=== PATIENT | male | born 1970 | race Caucasian/White ===

== ENCOUNTER 2019-03-24 17:33 | Emergency (ER) | payer BC ==
[2019-03-24 18:31] LABS: INR 0.95 (0.82-1.09)
[2019-03-24 18:38] LABS: Albumin 4.1 g/dL (3.2-5.2); Albumin/Globulin Ratio 1.4 (1-3); BUN/Creatinine Ratio 15.6 (8-20); Calcium 8.9 mg/dL (8.6-10.3); EGFR African American 88.1 (>60); EGFR Non-African American 72.8 (>60); Globulin 2.9 g/dL (2-4); Potassium 4.2 mmol/L (3.5-5.0); Total Bilirubin 0.4 mg/dL (0.2-1.0); Troponin I 0.01 ng/mL (<0.04)
[2019-03-24 18:46] LABS: ABS Eosinophils 0.1 10^3/ul (0-0.6); ABS Lymphocytes 2.8 10^3/ul (1.0-4.8); ABS Monocytes 0.6 10^3/ul (0-0.8); ABS Neutrophils 4.4 10^3/ul (1.5-7.7); Eosinophil % 1.8 %; Hematocrit 41 % (42-52); Hemoglobin 13.9 g/dL (14.0-18.0); Lymphocyte % 34.7 %; Mean Corpuscular HGB Conc 34 g/dL (31-36); Mean Corpuscular Hemoglobin 30 pg (27-31); Mean Corpuscular Volume 87 fL (80-94); Mean Platelet Volume 9.2 fL (7.4-10.4); Nucleated Red Blood Cells % 0.1; Platelet Count 144 10^3/uL (150-450); Red Cell Distribution Width 14 % (10-15)
--- NOTE | 2019-03-24 20:46 | ED ---
Skin Complaint - HPI Summary HPI Summary: This pt is a 48 y/o male [facility] [place] [place] skin lesions on his left upper back since 2 days ago. Pt reports he noticed these lesions yesterday and he believes he was bitten by a spider 2 days ago. He notes that this morning he woke up with pain. He describes his pain on his left shoulder blade, left arm, and left anterior chest around his nipple. He describes this pain as "sunburn." Denies fever, SOB, nausea, vomiting. - History of Current Complaint Chief Complaint: EDGeneral Time Seen by Provider: 03/24/19 20:39 Stated Complaint: CHEST PAIN PER PT Hx Obtained From: Patient Onset/Duration: Started Days Ago - 2, Still Present Skin Exposure Onset/Duration: Days Ago - 2 Timing: Lasting Days - 2 Current Severity: Mild Pain Intensity: 0 Pain Scale Used: 0-10 Numeric Skin Location: Chest - left, Arm - left, Other: - left upper back Character: Pain Aggravating Symptom(s): Nothing Alleviating Symptom(s): Nothing Associated Signs & Symptoms: Negative - Allergy/Home Medications Allergies/Adverse Reactions: Allergies Allergy/AdvReac Type Severity Reaction Status Date / Time No Known Allergies Allergy Verified 03/24/19 17:43 PMH/Surg Hx/FS Hx/Imm Hx Endocrine/Hematology History: Denies: Hx Sickle Cell Disease Cardiovascular History: Denies: Hx Hypertension, Other Cardiovascular Problems/Disorders Respiratory History: Denies: Other Respiratory Problems/Disorders GI History: Denies: Other GI Disorders History: Denies: Other Problems/Disorders Musculoskeletal History: Denies: Other Musculoskeletal History Sensory History: Denies: Hx Contacts or Glasses, Hx Hearing Aid Opthamlomology History: Denies: Hx Contacts or Glasses Neurological History: Denies: Other Neuro Impairments/Disorders - Cancer History Hx Chemotherapy: No - Surgical History Surgery Procedure, Year, and Place: 06/26/2013 LEFT LEG FASCIOTOMY, [facility] [place]. 1991 APPENDECTOMY, [facility] [place]. 2011 - HERN[facility] [place]. 06/30/2013 DEBRIDEMENT OF LEFT LEG WOUND WITH REMOVAL OF DRAINS, [facility] [place]. 07/05/2013 FAILED ATTEMPT TO SUTURE LEFT LEG WOUND , [facility] [place] Hx Anesthesia Reactions: No - Immunization History Date of Tetanus Vaccine: 06/19/13 Date of Influenza Vaccine: 2011 Infectious Disease History: No Infectious Disease History: Denies: Traveled Outside the [place] in Last 30 Days - Family History Known Family History: Negative: Blood Disorder - Social History Alcohol Use: Occasionally Substance Use Type: Reports: None Smoking Status (MU): Never Smoked Tobacco Review of Systems Negative: Fever Positive: Chest Pain - left sided Negative: Shortness Of Breath Negative: Vomiting, Nausea Musculoskeletal: Other - POSITIVE: left shoulder blade pain, left arm pain Skin: Other - POSITIVE: skin lesions on left upper back All Other Systems Reviewed And Are Negative: Yes Physical Exam - Summary Physical Exam Summary: Appearance: Well-appearing, Well-nourished, lying in bed comfortable Skin: Warm, dry, Scattered vesicular lesions in a dermatome pattern in the left upper back radiating around the chest just below the nipple. Eyes: sclera anicteric, no conjunctival pallor ENT: mucous membranes moist Neck: deferred Respiratory: No signs of respiratory distress Cardiovascular: Appears well perfused, pulses are nml Abdomen: deferred Musculoskeletal: Moving all 4 extremities without obvious discomfort Neurological: Awake and alert, mentation is normal, speech is fluent and appropriate Psychiatric: affect is normal, does not appear anxious or depressed Triage Information Reviewed: Yes Vital Signs On Initial Exam: Initial Vitals Temp Pulse Resp BP Pulse Ox 98.2 F 76 18 155/102 94 03/24/19 17:38 03/24/19 17:38 03/24/19 17:38 03/24/19 17:38 03/24/19 17:38 Vital Signs Reviewed: Yes Diagnostics - Vital Signs Vital Signs Temp Pulse Resp BP Pulse Ox 03/24/19 19:42 98.3 F 72 16 136/92 96 03/24/19 17:38 98.2 F 76 18 155/102 94 - Laboratory Lab Results: Lab Results 03/24/19 03/24/19 03/24/19 Range/Units 18:12 18:12 18:12 WBC 8.0 (3.5-10.8) 10^3/uL RBC 4.70 (4.18-5.48) 10^6 /uL Hgb 13.9 L (14.0-18.0) g/dL Hct 41 L (42-52) % MCV 87 (80-94) fL MCH 30 (27-31) pg MCHC 34 (31-36) g/dL RDW 14 (10-15) % Plt Count 144 L (150-450) 10^3/uL MPV 9.2 (7.4-10.4) fL Neut % (Auto) 55.5 % Lymph % (Auto) 34.7 % [place] % (Auto) 7.8 % Eos % (Auto) 1.8 % Baso % (Auto) 0.2 % Absolute Neuts (auto) 4.4 (1.5-7.7) 10^3/ul Absolute Lymphs (auto) 2.8 (1.0-4.8) 10^3/ul Absolute Monos (auto) 0.6 (0-0.8) 10^3/ul Absolute Eos (auto) 0.1 (0-0.6) 10^3/ul Absolute Basos (auto) 0.0 (0-0.2) 10^3/ul Absolute Nucleated RBC 0.0 10^3/ul Nucleated RBC % 0.1 INR (Anticoag Therapy) 0.95 (0.82-1.09) Sodium 141 (135-145) mmol/L Potassium 4.2 (3.5-5.0) mmol/L Chloride 107 (101-111) mmol/L Carbon Dioxide 28 (22-32) mmol/L Anion Gap 6 (2-11) mmol/L BUN 17 (6-24) mg/dL Creatinine 1.09 (0.67-1.17) mg/dL Est GFR ( Amer) 88.1 (>60) Est GFR (Non-Af Amer) 72.8 (>60) BUN/Creatinine Ratio 15.6 (8-20) Glucose 93 (70-100) mg/dL Calcium 8.9 (8.6-10.3) mg/dL Total Bilirubin 0.40 (0.2-1.0) mg/dL AST 21 (13-39) U/L ALT 30 (7-52) U/L Alkaline Phosphatase 64 (34-104) U/L Troponin I 0.01 (<0.04) ng/mL Total Protein 7.0 (6.4-8.9) g/dL Albumin 4.1 (3.2-5.2) g/dL Globulin 2.9 (2-4) g/dL Albumin/Globulin Ratio 1.4 (1-3) Result Diagrams: 03/24/19 18:12 03/24/19 18:12 Lab Statement: Any lab studies that have been ordered have been reviewed, and results considered in the medical decision making process. - EKG 17:39 Cardiac Rate: NL - at 73 bpm EKG Rhythm: Sinus Rhythm Summary of EKG Findings: EKG shows normal sinus rhythm at 73 bpm. Course/Dx - Course Assessment/Plan: pt is a 48 y/o male presenting to [facility] c/o skin lesions on his left upper back since 2 days ago. He describes pain on his left shoulder blade, left arm, and left anterior chest around his nipple since this morning. On physical exam pt has scattered vesicular lesions in a dermatome pattern in the left upper back radiating around the chest just below the left nipple consistent with shingles. Pt will be discharged home with follow up from his PCP. He was given a prescription for Valtrex. - Diagnoses Provider Diagnoses: Shingles Discharge - Sign-Out/Discharge Documenting (check all that apply): Patient Departure - Discharge home Patient Received Moderate/Deep Sedation with Procedure: No - Discharge Plan Condition: Good Disposition: HOME Prescriptions: ValACYclovir (*) [Valtrex 1 GM(*)] 1 gm PO TID #21 tab Patient Education Materials: Shingles (ED) Referrals: Saeid Gupta MD [Primary Care Provider] - - Billing Disposition and Condition Condition: GOOD Disposition: Home - Attestation Statements Document Initiated by Cony: Yes Documenting Scribe: Nikki Muse Provider For Whom Cony is Documenting (Include Credential): Rudy Muñoz MD Scribe Attestation: Nikki Finnegan, scribed for Rudy Muñoz MD on 03/25/19 at 0622. Scribe Documentation Reviewed: Yes Provider Attestation: The documentation as recorded by the Nikki valle accurately reflects the service I personally performed and the decisions made by me, Rudy Muñoz MD Status of Scribe Document: Viewed
[2019-03-24] MEDS ORDERED: Acyclovir* 400 MG TAB PO ONE (20:48)
[2019-03-24 21:18] VITALS: BP 137/79
== END 2019-03-24 21:17 | disposition home or self-care (01) ==
LOC: ED 17:33
DX: B02.9 Zoster without complications (principal)
CPT/HCPCS: 36415; 80053; 84484; 85025; 85610; 93005; 99282; A9270-GY

== ENCOUNTER 2021-08-19 01:34 | Inpatient (IN) ==
[2021-08-19] MEDS ORDERED: Dexamethasone IV 4 MG/ML VIAL 1 ml VIAL IV SLOW PU ONE (01:53)
[2021-08-19 02:16] LABS: ABS Lymphocytes 0.7 10^3/ul (1.0-4.8); ABS Monocytes 0.4 10^3/ul (0-0.8); ABS Neutrophils 3.2 10^3/ul (1.5-7.7); Eosinophil % 0.2 %; Hematocrit 39 % (42-52); Hemoglobin 13.2 g/dL (14.0-18.0); Lymphocyte % 16.6 %; Mean Corpuscular HGB Conc 34 g/dL (31-36); Mean Corpuscular Hemoglobin 30 pg (27-31); Mean Corpuscular Volume 88 fL (80-94); Mean Platelet Volume 8.6 fL (7.4-10.4); Platelet Count 129 10^3/uL (150-450); Red Blood Count 4.47 10^6 /uL (4.18-5.48); Red Cell Distribution Width 15 % (10-15); White Blood Count 4.3 10^3/uL (3.5-10.8)
[2021-08-19 02:19] LABS: ALT 29 U/L (7-52); Albumin 3.8 g/dL (3.2-5.2); Albumin/Globulin Ratio 1.3 (1-3); Alkaline Phosphatase 56 U/L (35-149); Blood Urea Nitrogen 24 mg/dL (6-24); CO2 Carbon Dioxide 23 mmol/L (22-32); Calcium 8.2 mg/dL (8.6-10.3); Chloride 102 mmol/L (101-111); Globulin 2.9 g/dL (2-4); Glucose 108 mg/dL (70-100); Magnesium 1.9 mg/dL (1.9-2.7); Sodium 135 mmol/L (135-145); Total Protein 6.7 g/dL (6.4-8.9)
[2021-08-19 02:22] LABS: Alcohol, S < 13 mg/dL (<13)
[2021-08-19 02:23] LABS: Activated Partial Thrombo Time 25.7 seconds (26.0-38.0); INR 1.1 (0.86-1.15)
[2021-08-19 02:26] LABS: AST 25 U/L (13-39); Anion Gap 10 mmol/L (2-11); Potassium 4.5 mmol/L (3.5-5.0)
[2021-08-19 02:37] LABS: TSH Ultra Thyroid Stim Horm 2.37 mcIU/mL (0.34-5.60)
[2021-08-19] MEDS ORDERED: oxyCODONE/Acetamin 5/325 mg TAB PO ONE (05:02)
[2021-08-19] MEDS ORDERED: Iohexol 350 (CONTRAST) 500 ML MDV IV ONE (05:40)
[2021-08-19] MEDS ORDERED: Albuterol HFA INHALER 8 gm MDI INH PRN (06:17)
[2021-08-19] MEDS ORDERED: NS 0.9% 1000 ml BAG 1,000 ML IV ONE (06:21)
[2021-08-19] MEDS ORDERED: Remdesivir 100 mg Vial 200 MG in NS 0.9% 250 ml 210 ML IV ONE (06:30)
[2021-08-19] MEDS ORDERED: NS 0.9% 1000 ml BAG 1,000 ML IV SCH (06:30)
[2021-08-19] MEDS ORDERED: diPHENhydraMINE IV 50 MG/ML 1 ml VIAL (BENADRYL) IV ONE (06:30)
[2021-08-19] MEDS ORDERED: Metoclopramide 5 MG/ML VIAL (10 mg) IV SLOW PU ONE (06:30)
[2021-08-19] MEDS ORDERED: methylPREDNISolone SOD 40 mg/ml 1 ml VIAL IV SCH (07:00)
[2021-08-19] MEDS: Enoxaparin 60 MG/0.6 ML SYR SUBCUT SCH ×2 (07:41→22:13)
[2021-08-19 08:01] LABS: Rapid COVID-19 Molecular Detected (Undetected)
[2021-08-19] MEDS: methylPREDNISolone SOD 40 mg/ml 1 ml VIAL IV SCH ×2 (09:58→22:13)
[2021-08-19 19:37] LABS: Urine Appearance Clear; Urine Bilirubin Negative (Negative); Urine Blood Negative (Negative); Urine Color Yellow; Urine Glucose 1+(50 mg/dL) (Negative); Urine Ketones Negative (Negative); Urine Nitrite Negative (Negative); Urine Protein 1+(30 mg/dL) (Negative); Urine Specific Gravity 1.032 (1.002-1.030); Urine Urobilinogen Negative (Negative)
[2021-08-19 19:41] LABS: Urine Bacteria 1+ (Absent); Urine Red Blood Cell 3+(>10/hpf) (Absent); Urine Squamous Epithelial Cell Present (Absent); Urine White Blood Cell Trace(0-5/hpf) (Absent)
[2021-08-20 06:37] LABS: ABS Lymphocytes 0.8 10^3/ul (1.0-4.8); ABS Monocytes 0.3 10^3/ul (0-0.8); ABS Neutrophils 4.5 10^3/ul (1.5-7.7); Hematocrit 40 % (42-52); Hemoglobin 13.4 g/dL (14.0-18.0); Lymphocyte % 14.8 %; Mean Corpuscular HGB Conc 34 g/dL (31-36); Mean Corpuscular Hemoglobin 29 pg (27-31); Mean Corpuscular Volume 88 fL (80-94); Mean Platelet Volume 8.4 fL (7.4-10.4); Platelet Count 136 10^3/uL (150-450); Red Blood Count 4.56 10^6 /uL (4.18-5.48); Red Cell Distribution Width 15 % (10-15); White Blood Count 5.7 10^3/uL (3.5-10.8)
[2021-08-20 06:57] LABS: Albumin 3.7 g/dL (3.2-5.2); Albumin/Globulin Ratio 1.2 (1-3); Calcium 8.5 mg/dL (8.6-10.3); Direct Bilirubin 0.1 mg/dL (0.03-0.18); Indirect Bilirubin 0.3 mg/dL (0.3-1.0); Potassium 4.7 mmol/L (3.5-5.0); Total Bilirubin 0.4 mg/dL (0.2-1.0); Total Protein 6.7 g/dL (6.4-8.9)
[2021-08-20] MEDS: Enoxaparin 60 MG/0.6 ML SYR SUBCUT SCH ×2 (09:45→20:18)
[2021-08-20] MEDS: methylPREDNISolone SOD 40 mg/ml 1 ml VIAL IV SCH ×2 (09:45→20:18)
[2021-08-20] MEDS: Remdesivir 100 mg Vial 100 MG in NS 0.9% 250 ml 230 ML IV SCH (09:45)
[2021-08-21] MEDS: Enoxaparin 60 MG/0.6 ML SYR SUBCUT SCH ×2 (08:24→20:04)
[2021-08-21] MEDS: methylPREDNISolone SOD 40 mg/ml 1 ml VIAL IV SCH (08:24)
[2021-08-21] MEDS: Remdesivir 100 mg Vial 100 MG in NS 0.9% 250 ml 230 ML IV SCH (08:26)
[2021-08-21] MEDS ORDERED: Flu vaccine *QUAD* 2021-22* 0.5 ML SYRINGE IM ONE (09:00)
[2021-08-22 07:22] LABS: Hematocrit 41 % (42-52); Mean Corpuscular HGB Conc 34 g/dL (31-36); Mean Corpuscular Hemoglobin 30 pg (27-31); Mean Corpuscular Volume 87 fL (80-94); Mean Platelet Volume 8.7 fL (7.4-10.4); Platelet Count 150 10^3/uL (150-450); Red Blood Count 4.74 10^6 /uL (4.18-5.48); Red Cell Distribution Width 14 % (10-15); White Blood Count 6.7 10^3/uL (3.5-10.8)
[2021-08-22 07:41] LABS: Albumin 3.6 g/dL (3.2-5.2); Albumin/Globulin Ratio 1.2 (1-3); Calcium 8.8 mg/dL (8.6-10.3); Potassium 4.6 mmol/L (3.5-5.0); Total Bilirubin 0.4 mg/dL (0.2-1.0); Total Protein 6.6 g/dL (6.4-8.9); eGFR CKD-EPI 104.7 (>60)
[2021-08-22] MEDS: Remdesivir 100 mg Vial 100 MG in NS 0.9% 250 ml 230 ML IV SCH (08:47)
[2021-08-22] MEDS: Enoxaparin 60 MG/0.6 ML SYR SUBCUT SCH (08:47)
[2021-08-22 13:27] VITALS: BP 127/67
== END 2021-08-22 15:10 | disposition home or self-care (01) | DRG 137 ==
LOC: ED 01:34 → SUATTDRO 08:31 → MED 08:31
PROVIDERS: ADMIT Student in an Organized Health Care Education/Training Program; ATTEND Internal Medicine